=== PATIENT | female | born 1975 | race Caucasian/White ===

== ENCOUNTER 2023-03-07 09:55 | Outpatient (CLI) | payer BC, SELFPAY ==
--- NOTE | 2023-03-07 10:23 | ECG_ITS ---
Measurements Intervals [place] Rate: 75 P: 41 TX: 233 QRS: -10 QRSD: 104 T: 17 QT: 362 QTc: 407 Interpretive Statements SINUS RHYTHM WITH FIRST DEGREE AV BLOCK MINIMAL VOLTAGE CRITERIA FOR LVH, CONSIDER NORMAL VARIANT [MEETS CRITERIA IN ONE OF: R(aVL), S(V1), R(V5), R(V5/V6)+S(V1)] POSSIBLE ANTERIOR MYOCARDIAL INFARCTION [30 ms Q WAVE IN V3/V4, OR R < 0.2 mV IN V4], PROBABLY OLD INFERIOR MYOCARDIAL INFARCTION [40+ ms Q WAVE AND/OR ST/T ABNORMALITY IN II/aVF], PROBABLY OLD ABNORMAL ECG NO PREVIOUS ECG AVAILABLE FOR COMPARISON Electronically Signed On 03-07-2023 13:26:47 CDT by Kenny Finney M.D.
[2023-03-07 10:58] LABS: Hematocrit 39.7 % (37.0-47.0); Hemoglobin 12.9 g/dL (12.0-15.0)
[2023-03-07 11:13] LABS: Anion Gap 5 mmol/L (8-16); Blood Urea Nitrogen 8 mg/dL (7-17); Calcium 10.2 mg/dL (8.4-10.2); Carbon Dioxide 28 mmol/L (22-30); Chloride 102 mmol/L (98-107); Estimated Glomerular Filt Rate > 60; Glucose 132 mg/dL (65-110); Potassium 4.2 mmol/L (3.4-5.0); Sodium 135 mmol/L (137-145)
== END 2023-03-07 09:56 | disposition home or self-care (01) ==
LOC: ANHSURGERY 10:21
PROVIDERS: Anesthesiology; PCP Family Medicine; Visit Provider Otolaryngology
DX: E11.9 Type 2 diabetes mellitus without complications (principal); I10 Essential (primary) hypertension; D64.9 Anemia, unspecified; Z01.818 Encounter for other preprocedural examination
CPT/HCPCS: 36415; 80048; 85014; 85018; 93005

== ENCOUNTER 2023-03-12 03:24 | Day surgery (SDC) | payer BC, SELFPAY ==
[2023-03-05 10:02] VITALS: BMI 43.1
--- NOTE | 2023-03-05 10:21 | PC.NURSE ---
Report to the Outpatient Waiting Room, entrance under the green pavilion located off [facility], at time _0900 on date 03/12/23_. Planned Procedure Time: _1100. Time changes happen often and if your time is changed the preop area will call you the afternoon before. - You and your visitor will be asked to self-screen and do not enter if you have any COVID symptoms. - A mask is optional within the hospital at this time. Patients may have clear liquids (water, carbonated beverages, clear teas, apple juice) until 3 hours prior to surgery with a maximum of 20 ounces. - No food from midnight until time of surgery - Infants may have breast milk until 4 hours before surgery, formula 6 hours prior to surgery. - Children will be allowed to drink immediately following surgery. If applicable, please bring a bottle or sippy cup to assist with drinking. Juice, water, soda, and popsicles are readily available. For infants on formula, please bring formula the day of surgery. Pacifiers are allowed. Take the following medications with a SIP of water the morning of surgery: _n/a DO NOT STOP ANY OF YOUR OTHER PRESCRIPTION MEDICATIONS PRIOR TO SURGERY ?EXCEPT THE FOLLOWING Medications to discontinue per physician __vitamins, supplements Date to take last dose_03/09/23___ Please no make-up, nail tanzanian, hairspray, perfume, deodorant, or body powder the day of surgery. No jewelry (including any body piercings) or valuables the day of surgery, leave them at home. Please take a shower or bath the night before, or the morning of, surgery with an antibacterial soap. Wear comfortable, loose fitting clothing. Children are encouraged to wear pajamas. - Jewelry must be removed prior to entering the operating room. Rings and piercings that are not removed may be cut off. - The hospital will not accept responsibility for valuables. - Please leave all valuables, including medications, at home the day of surgery. If you are going home after surgery, a licensed dump truck driver must drive you home. - NO public transportation without another adult if you receive anesthesia. - We recommend that an adult stay with you for 24 hours following discharge. - We also recommend that you do not drive, make important decision, drink alcoholic beverages, or take any drugs that were not prescribed by your health care provider for at least 24 hours after your discharge time. For Pediatric surgeries, we recommend two adults accompany the child home. Follow any additional instructions given to you from your surgeon. If you or anyone in your household have experienced Covid symptoms in the past week, please notify your surgeon or the nurse liaison at the phone number below for possible testing. Telephone instructions given to Becky Xiaoand asked if any additional questions and then verbalized understanding. Patient advised to call surgeon office or pre surgery nurse liaison [phone] if any additional questions.
--- NOTE | 2023-03-11 16:47 | P.HP_ITS ---
H&P: HPI History of Present Illness Date/Time: 03/11/23 16:47 Chief Complaint: Septal deviation turbinate hypertrophy nasal obstruction Narrative: planned surgical procedure Review of Systems Review of Systems: All systems reviewed & are unremarkable except as noted in HPI and below [facility] Family History Family History (Updated 01/09/23 @ 14:36 by Heide Oneill CMA) Mother Alcoholism Depression Sibling Depression Heart disease Grandparent Hypertension Thyroid disorder Social History Social History Smoking packs per day: 1 Smoking cigarettes per day: 20.0 Years smoked: 15 Smoking pack-years: 15.00 Smoking status: Former smoker Tobacco type: cigarettes Alcohol intake: never Substance use: never Lack of Transportation: No Lack of Food: Never True Current Housing: I Have Housing Concerned About Future Housing: No Difficulty Paying Gas/Electric Bills: No Difficulty Paying for Meds: No Currently Unemployed: No Education: Bachelor's Degree Difficulty w/ Childcare or Family Care: No Living arrangements: with family Spiritual care concerns: No Meds Home Medications and Allergies Home Medications Medication Instructions Recorded Confirmed Type bupropion HCl 150 mg 24 hr tablet, 150 mg PO HS 01/09/23 03/05/23 History extended release cholecalciferol (vitamin D3) 125 125 mcg PO DAILY 01/09/23 03/05/23 History mcg (5,000 unit) capsule lisinopril 5 mg tablet 5 mg PO HS 01/09/23 03/05/23 History metformin 500 mg tablet 1,500 mg PO HS 01/09/23 03/05/23 History metoprolol succinate 100 mg 100 mg PO HS 01/09/23 03/05/23 History tablet,extended release 24 hr multivitamin 1 tablet PO HS 01/09/23 03/05/23 History rosuvastatin 20 mg tablet 20 mg PO HS 01/09/23 03/05/23 History semaglutide 0.25 mg or 0.5 mg (2 0.25 mg subcut WEEKLY 01/09/23 03/05/23 History mg/3 mL) subcutaneous pen injector (Ozempic) iron,carbonyl 30 mg-vitamin C 10 1 tablet PO HS 03/05/23 03/05/23 History mg-FOS 25 mg chewable tablet (Chewable Iron) magnesium 100 mg tablet 100 mg PO HS 03/05/23 03/05/23 History Allergies Allergy/AdvReac Type Severity Reaction Status Date / Time penicillin G Allergy Unknown Rash Verified 01/09/23 14:27 Exam Narrative: septal deviation turbinate hypertrophy Assessment and Plan Assessment and plan (1) Hypertrophy of both inferior nasal turbinates: Code(s): J34.3 - Hypertrophy of nasal turbinates Status: Acute Assessment and Plan: OR for endoscopic assisted septoplasty and inferior turbinate reduction bilaterally with outfracture. the risks More discussed including bleeding infection damage to surrounding structures need for further procedures postoperative bleeding septal perforation failure to resolve symptoms failure to resolve any pressure pain symptoms bleeding infection damage to any structure above the clavicles by myself damage any structures by Anesthesia including vocal cord paralysis.? Blindness change in vision CSF leak brain brain damage.? (2) Nasal septal deviation: Code(s): J34.2 - Deviated nasal septum Status: Acute
[2023-03-12] VITALS (11 sets, daily range): BP systolic 114–154; BP diastolic 68–92; PULSE 92–99; RESP 12–20; TEMP 36.2–36.3; O2SAT 90–99
--- NOTE | 2023-03-12 07:15 | WPDHPUPDATE1 ---
History and Physical Update Update Date/Time: 03/12/23 07:15 History and Physical has been reviewed, including an updated exam of the patient. There are NO changes in the patient's condition. Risks, benefits, and alternatives have been discussed and questions answered. Patient agrees to proceed with procedure.
[2023-03-12] MEDS: ACETAMINOPHEN 500 MG TABLET 1000 MG PO (09:18)
[2023-03-12] MEDS: LACTATED RINGERS 1,000 ML 30 ML IV CONT (09:20)
[2023-03-12 09:33] LABS: Glucose Point of Care 168 mg/dl (65-105)
--- NOTE | 2023-03-12 09:56 | WPDANESEPPF ---
Anes - Initial Pre Proc Eval Procedure: Operation Date: 03/12/23 11:00 Proposed Procedures p Septoplasty - Bin Masterson MD s Bilateral Inferior Turbinectomy with Outfracture - Bin Masterson MD Date/Time: 03/12/23 09:56 Surgeon: Bin Masterson MD Pre Op Diagnosis: Deptal Dev, Turbinate Hypertro Patient Data Age: 47 Gender: F Height: 1.63 m Weight: 113.7 kg Last Vital Signs Temp 36.3 C L 03/12/23 08:53 Pulse 93 03/12/23 08:53 Resp 20 03/12/23 08:53 BP 114/87 03/12/23 08:53 Pulse Ox 99 03/12/23 08:53 O2 Del Method Room Air 03/12/23 08:53 Allergies Allergy/AdvReac Type Severity Reaction Status Date / Time penicillin G Allergy Unknown Rash Verified 03/12/23 08:51 Home Medications Medication Instructions Recorded Confirmed Type bupropion HCl 150 mg 24 hr tablet, 150 mg PO HS 01/09/23 03/12/23 History extended release cholecalciferol (vitamin D3) 125 125 mcg PO DAILY 01/09/23 03/12/23 History mcg (5,000 unit) capsule lisinopril 5 mg tablet 5 mg PO HS 01/09/23 03/12/23 History metformin 500 mg tablet 1,500 mg PO HS 01/09/23 03/12/23 History metoprolol succinate 100 mg 100 mg PO HS 01/09/23 03/12/23 History tablet,extended release 24 hr multivitamin 1 tablet PO HS 01/09/23 03/12/23 History rosuvastatin 20 mg tablet 20 mg PO HS 01/09/23 03/12/23 History semaglutide 0.25 mg or 0.5 mg (2 0.25 mg subcut WEEKLY 01/09/23 03/12/23 History mg/3 mL) subcutaneous pen injector (Ozempic) iron,carbonyl 30 mg-vitamin C 10 1 tablet PO HS 03/05/23 03/12/23 History mg-FOS 25 mg chewable tablet (Chewable Iron) magnesium 100 mg tablet 100 mg PO HS 03/05/23 03/12/23 History Laboratory Tests 03/12/23 09:27 POC Capillary Glucose 168 H mg/dl (65-105) Patient hx anesthesia problems: none Family hx anesthesia problems: none Results Review: All pre-operative results and documents have been reviewed as part of the pre-operative evaluation. [facility] Family History Family History Mother Alcoholism Depression Sibling Depression Heart disease Grandparent Hypertension Thyroid disorder Social History Social History Smoking packs per day: 1 Smoking cigarettes per day: 20.0 Years smoked: 15 Smoking pack-years: 15.00 Smoking status: Former smoker Tobacco type: cigarettes Alcohol intake: never Substance use: never Lack of Transportation: No Lack of Food: Never True Current Housing: I Have Housing Concerned About Future Housing: No Difficulty Paying Gas/Electric Bills: No Difficulty Paying for Meds: No Currently Unemployed: No Education: Bachelor's Degree Difficulty w/ Childcare or Family Care: No Living arrangements: with family Spiritual care concerns: No Anes - Eval Final PreProcedure Day of Procedure 03/12/23 09:56 Patient weight: morbidly obese Heart: regular rate and rhythm Lungs: clear to auscultation Airway: Mallampati scale class II Neurological: alert and oriented Last oral intake: >/= 8 hours ASA classification: III Emergent: no Anesthetic plan: proceed Anesthesia type and monitoring: general ETT and standard monitoring Results Review: All pre-operative results and documents have been reviewed as part of the pre-operative evaluation. Informed Consent: The patient's anesthetic plan and its attendant risks and benefits were discussed with the patient/family/POA. Questions were solicited and answers provided to the satisfaction of the patient/family/POA.
--- NOTE | 2023-03-12 11:04 | SUR.PREOP ---
1100-PT AND SPOUSE AWARE SURGEON DELAYS SELF ~2 HOURS.
[2023-03-12] MEDS: ceFAZolin 2 GM/D5W 50 ML 2 GM/50 ML BAG IVPB (13:33)
[2023-03-12] MEDS: LIDO 1%/EPINEPHRINE 1:100,000 20 ML VIAL INFILTRATE (14:00)
[2023-03-12] MEDS: OXYMETAZOLINE HCL 0.05% NAS 15 ML BTL (*BKC) 1 SPRAY NASAL (14:01)
[2023-03-12] MEDS: fentaNYL CITRATE INJ (*CRX) 100 MCG/2 ML VIAL 25 MCG IV PUSH ×5 (15:13→15:34)
[2023-03-12 15:25] LABS: Glucose Point of Care 164 mg/dl (65-105)
--- NOTE | 2023-03-12 15:25 | P.OP_ITS ---
Procedure Note - Detailed Date of Procedure 03/12/23 Pre-op Diagnosis Deptal Dev, Turbinate Hypertro Post-op Diagnosis Same Procedure Performed Septoplasty, turbinate reduction with outfracture bilaterally Surgeon Bin Masterson MD Anesthesia General Indications See above Findings Severely deviated septum to the right turbinate hypertrophy Description of Procedure Patient identified consent verified in prep. Patient brought operating. Time- out performed. General anesthesia induced endotracheal tube secured. Patient prepped reposition procedure confirm 2nd time-out performed. 0 degree endoscope utilized severe right septal deviation large turbinates. 10 cc 1% lidocaine 1 100 parts epinephrine injecting the bilateral nasal septum inferior turbinates [place] incision made left-sided left nasal septal flap elevated a 7 [place] suction osteotome utilized to cross over the septum. Right nasal septal flap elevated. Deviated septum removed combination [place] forceps [place] forceps osteotome. [place] incision closed 3-0 interrupted sorry 3 interrupted 5 0 fast gut sutures. Turbinates reduced in the submucosal plane using microdebrider with turbinate blade. They were then outfractured. [place] tips as well as entry point was cauterized. Bleeding was minimal centrally 10 cc. Patient tolerated the procedure well no complications. [place] splints were placed sutured anteriorly using a 3-0 mattressed nylon suture. I performed all dictated portions procedure no complications. Estimated Blood Loss 10 Drains No Packing No Pathology None sent Complications No immediate complications Condition Stable Disposition PACU [facility] Billing Surgery - Charge Forward: Surgery Billing
[2023-03-12] MEDS: oxyCODONE HCL (*CRX) 5 MG TAB IR PO (16:46)
--- NOTE | 2023-03-12 17:16 | SUR.PHASEII ---
JANIE IN PATIENT ROOM TO ASSESS BLEEDING FROM NARES, PATIENT IS SATURATING THROUGH DRIP PAD/GAUZE EVERY 15-20 MINUTES.
== END 2023-03-12 17:30 | disposition home or self-care (01) ==
PROVIDERS: PCP Family Medicine; Visit Provider Otolaryngology
PROC: (CPT 30520; principal; 2023-03-12 11:00)
PROC: (CPT 30520; 2023-03-12 11:00)
DX: J34.3 Hypertrophy of nasal turbinates (principal); J34.2 Deviated nasal septum; Z79.84 Long term (current) use of oral hypoglycemic drugs; Z79.899 Other long term (current) drug therapy; Z87.891 Personal history of nicotine dependence; E66.01 Morbid (severe) obesity due to excess calories; Z68.41 Body mass index [BMI] 40.0-44.9, adult
CPT/HCPCS: 30520; 30140; 82948; A9270; J0690; J1100; J2250; J2405; J2704; J3010; J7120